=== PATIENT | male | born 1985 | race Caucasian/White ===

== ENCOUNTER 2020-06-18 18:13 | Inpatient (IN) | payer BC, SELFPAY ==
[~2020-06-18] VITALS: Ht 175.3 cm; Wt 112.9 kg
[2020-06-18 18:55] VITALS: BP_SYST 157
[2020-06-18 21:20] LABS: BASOPHILS % (AUTO) 0.1 % (0.0-2.0); HEMATOCRIT 45.2 % (36-54); HEMOGLOBIN 15.8 g/dL (14.0-18.0); LYMPHOCYTES % (AUTO) 12.9 % (20.5-51.5); MEAN CORPUSCULAR HEMOGLOBIN 32 pg (27-31); MEAN CORPUSCULAR HGB CONC 35 % (32-36); MEAN CORPUSCULAR VOLUME 91 fL (79.0-98.0); MONOCYTES # (AUTO) 0.8 K/uL (0.0-1.0); MONOCYTES % (AUTO) 9.3 % (1.7-9.3); NEUTROPHILS # (AUTO) 6.3 K/uL (1.8-7.7); NEUTROPHILS % (AUTO) 77.7 % (40.0-70.0); PLATELET COUNT (AUTO) 318 K/uL (130-430); RED BLOOD CELL COUNT(AUTO) 4.98 MIL/uL (4.2-6.2); WHITE BLOOD COUNT (AUTO) 8.1 K/uL (4.8-10.8)
[2020-06-18 21:22] LABS: CALCIUM 9.1 mg/dL (8.4-11.0); CREATININE 0.96 mg/dL (0.55-1.30); POTASSIUM 3.6 mmol/L (3.5-5.1)
[2020-06-18 21:28] LABS: ALBUMIN 3.5 g/dL (3.4-4.8); TOTAL BILIRUBIN 0.7 mg/dL (0.0-1.0)
[2020-06-18] MEDS ORDERED: cefTRIAXone 1 GM VIAL IM ONE (23:15)
[2020-06-18] MEDS ORDERED: DEXAMETHASONE SOD PHOSPHATE 4 MG/ML VIAL IM ONE (23:15)
[2020-06-18] MEDS ORDERED: AZITHROMYCIN 250 MG TABLET PO ONE (23:15)
[2020-06-19] MEDS ORDERED: NS 500 ML IV ONE (00:15)
[2020-06-19] MEDS ORDERED: DECADRON 4 MG TABLET PO SCH (10:00)
[2020-06-19 10:06] LABS: FIBRINOGEN 695 mg/dL (200-400)
[2020-06-19 11:08] LABS: C-REACTIVE PROTEIN QUANT 10.7 mg/dL (0-0.5)
[2020-06-19] MEDS: AZITHROMYCIN 250 MG TABLET PO SCH (11:13)
[2020-06-19] MEDS ORDERED: LORazepam 2 MG/ML VIAL IVP PRN (15:15)
[2020-06-19] MEDS ORDERED: ACETAMINOPHEN 325 MG TABLET PO PRN (15:15)
[2020-06-19] MEDS ORDERED: NALOXONE HCL 0.4 MG/ML AMP (NARCAN) IVP PRN ×2 (15:15)
[2020-06-19] MEDS ORDERED: ONDANSETRON HCL 4 MG/2 ML VIAL IVP PRN (15:15)
[2020-06-19] MEDS ORDERED: HYDROcodone/ACETAMIN 5-325 MG TAB (NORCO/ VICODIN) PO PRN (15:15)
[2020-06-19 16:02] VITALS: BP_SYST 142
[2020-06-19] MEDS: IPRATROPIUM BROM 0.5 MG/2.5 ML VIAL.NEB (ATROVENT) INH SCH (20:10)
[2020-06-19] MEDS: cefTRIAXone 1 GM IVPB PREMIX 50 ML IV SCH (21:45)
[2020-06-19] MEDS: NORMAL SALINE 5 ML DISP.SYRIN IVF SCH (21:46)
[2020-06-19] MEDS ORDERED: NORMAL SALINE 5 ML DISP.SYRIN IVF SCH (22:00)
[2020-06-19] MEDS: AZITHROMYCIN 500 MG in NS 250 ML IV SCH (22:44)
[2020-06-20] MEDS: IPRATROPIUM BROM 0.5 MG/2.5 ML VIAL.NEB (ATROVENT) INH SCH ×6 (00:16→23:00)
[2020-06-20] MEDS: NORMAL SALINE 5 ML DISP.SYRIN IVF SCH ×3 (05:52→21:37)
[2020-06-20 07:54] LABS: BASOPHILS % (AUTO) 0.1 % (0.0-2.0); HEMATOCRIT 43.1 % (36-54); HEMOGLOBIN 14.8 g/dL (14.0-18.0); LYMPHOCYTES # (AUTO) 2.4 K/uL (1.0-5.5); LYMPHOCYTES % (AUTO) 28.8 % (20.5-51.5); MEAN CORPUSCULAR HEMOGLOBIN 31 pg (27-31); MEAN CORPUSCULAR HGB CONC 34 % (32-36); MEAN CORPUSCULAR VOLUME 91 fL (79.0-98.0); MONOCYTES # (AUTO) 0.9 K/uL (0.0-1.0); NEUTROPHILS # (AUTO) 5.1 K/uL (1.8-7.7); NEUTROPHILS % (AUTO) 60.1 % (40.0-70.0); PLATELET COUNT (AUTO) 396 K/uL (130-430); RED BLOOD CELL COUNT(AUTO) 4.71 MIL/uL (4.2-6.2); RED CELL DISTRIBUTION WIDTH 12.7 % (9.0-15.0); WHITE BLOOD COUNT (AUTO) 8.4 K/uL (4.8-10.8)
[2020-06-20 08:28] LABS: ALBUMIN 2.9 g/dL (3.4-4.8); CALCIUM 8.7 mg/dL (8.4-11.0); CREATININE 0.76 mg/dL (0.55-1.30); POTASSIUM 3.5 mmol/L (3.5-5.1); TOTAL BILIRUBIN 0.5 mg/dL (0.0-1.0)
[2020-06-20] MEDS: DEXAMETHASONE SOD PHOSPHATE 10 MG/ML VIAL IVP SCH (08:45)
[2020-06-20] MEDS: ALBUTEROL SULFATE 0.083% 2.5 MG/3 ML VIAL.NEB INH PRN ×3 (10:26→15:35)
[2020-06-20] MEDS: AZITHROMYCIN 250 MG TABLET PO SCH (11:29)
[2020-06-20 12:25] LABS: C-REACTIVE PROTEIN QUANT 5.6 mg/dL (0-0.5)
[2020-06-20] MEDS ORDERED: LEVO500T89 PO (16:28)
[2020-06-20] MEDS ORDERED: DEC4 PO (16:28)
[2020-06-20] MEDS ORDERED: ALBMDI INH (16:29)
[2020-06-20] MEDS ORDERED: cefTRIAXone 1 GM IVPB PREMIX 50 ML IV ONE (21:07)
[2020-06-20] MEDS ORDERED: AZITHROMYCIN 500 MG/VIAL (ZITHROMAX) IV ONE (21:08)
[2020-06-20] MEDS: AZITHROMYCIN 500 MG in NS 250 ML IV SCH (21:24)
[2020-06-20] MEDS: cefTRIAXone 1 GM IVPB PREMIX 50 ML IV SCH (21:28)
[2020-06-21 00:06] LABS: ERYTHROCYTE SEDIMENTATION RATE 75 MM/HR (0-15)
[2020-06-21] MEDS ORDERED: HYDROcodone/ACETAMIN 10-325 MG TAB ONE (01:18)
[2020-06-21] MEDS: HYDROcodone/ACETAMIN 10-325 MG TAB PO PRN ×2 (01:20→09:40)
[2020-06-21] MEDS ORDERED: LORazepam 2 MG/ML VIAL ONE (04:30)
[2020-06-21] MEDS: NORMAL SALINE 5 ML DISP.SYRIN IVF SCH ×3 (06:38→22:00)
[2020-06-21] MEDS: IPRATROPIUM BROM 0.5 MG/2.5 ML VIAL.NEB (ATROVENT) INH SCH ×3 (07:00→15:00)
[2020-06-21 08:24] LABS: BASOPHILS % (AUTO) 0.4 % (0.0-2.0); CALCIUM 8.7 mg/dL (8.4-11.0); CREATININE 0.78 mg/dL (0.55-1.30); EOSINOPHILS % (AUTO) 0.2 % (0.0-4.0); LYMPHOCYTES # (AUTO) 2.4 K/uL (1.0-5.5); LYMPHOCYTES % (AUTO) 28.9 % (20.5-51.5); MEAN CORPUSCULAR HEMOGLOBIN 31 pg (27-31); MEAN CORPUSCULAR HGB CONC 34 % (32-36); MEAN CORPUSCULAR VOLUME 91 fL (79.0-98.0); MONOCYTES % (AUTO) 11.8 % (1.7-9.3); NEUTROPHILS % (AUTO) 58.7 % (40.0-70.0); PLATELET COUNT (AUTO) 460 K/uL (130-430); POTASSIUM 3.6 mmol/L (3.5-5.1); RED BLOOD CELL COUNT(AUTO) 4.49 MIL/uL (4.2-6.2); RED CELL DISTRIBUTION WIDTH 12.9 % (9.0-15.0); WHITE BLOOD COUNT (AUTO) 8.5 K/uL (4.8-10.8)
[2020-06-21] MEDS: DEXAMETHASONE SOD PHOSPHATE 10 MG/ML VIAL IVP SCH (09:00)
[2020-06-21] MEDS ORDERED: guaiFENesin/DEXTROMETHORPHAN 10 ML UDC PO PRN ×2 (09:30→13:45)
[2020-06-21 10:52] LABS: C-REACTIVE PROTEIN QUANT 2.8 mg/dL (0-0.5)
[2020-06-21 12:20] VITALS: BP_SYST 131
[2020-06-21 14:05] LABS: ERYTHROCYTE SEDIMENTATION RATE 71 MM/HR (0-15)
[2020-06-21 16:15] VITALS: BP_SYST 129
[2020-06-21] MEDS ORDERED: LEVO500T89 PO (18:24)
[2020-06-21] MEDS ORDERED: DEC4 PO (18:24)
[2020-06-21] MEDS ORDERED: ALBMDI INH (18:24)
[2020-06-21 18:46] VITALS: BP_SYST 131
[2020-06-21 20:00] VITALS: BP_SYST 156
[2020-06-21] MEDS: cefTRIAXone 1 GM IVPB PREMIX 50 ML IV SCH (22:00)
[2020-06-21] MEDS: AZITHROMYCIN 500 MG in NS 250 ML IV SCH (22:30)
[2020-06-22] VITALS: BP_SYST 145
[2020-06-22] MEDS: HYDROcodone/ACETAMIN 10-325 MG TAB PO PRN (01:46)
[2020-06-22] MEDS: NORMAL SALINE 5 ML DISP.SYRIN IVF SCH (06:00)
[2020-06-22 08:00] VITALS: BP_SYST 144
[2020-06-22 08:45] VITALS: BP_SYST 144
[2020-06-22] MEDS: DEXAMETHASONE SOD PHOSPHATE 10 MG/ML VIAL IVP SCH (09:00)
[2020-06-22 10:44] VITALS: BP_SYST 145
== END 2020-06-22 09:20 | disposition home or self-care (01) | DRG 177 ==
LOC: SED 18:13 → STU 06-19 02:24
PROVIDERS: ADMIT Preventive Medicine Preventive Medicine/Occupational Environmental Medicine; ATTEND Preventive Medicine Preventive Medicine/Occupational Environmental Medicine
DX: U07.1 COVID-19 (principal); J12.89 Other viral pneumonia; J96.01 Acute respiratory failure with hypoxia; E87.1 Hypo-osmolality and hyponatremia; E66.9 Obesity, unspecified; Z20.828 Contact with and (suspected) exposure to other viral communicable diseases; R74.01 Elevation of levels of liver transaminase levels; E78.5 Hyperlipidemia, unspecified; K76.0 Fatty (change of) liver, not elsewhere classified; R73.9 Hyperglycemia, unspecified; R16.2 Hepatomegaly with splenomegaly, not elsewhere classified; Z68.36 Body mass index [BMI] 36.0-36.9, adult
CPT/HCPCS: 36415; 36600; 71045; 76700-TC; 80048; 80053; 82728; 82803-TC; 83605; 83615-TC; 84484; 85025; 85379; 85384-TC; 85651-TC; 86140; 87040-TC; 93005; 94640; 96360; 96372; 99285; G0378; J0456; J0696; J1100; J2060; J7040; J7050; J7613; Q0144; U0003

== ENCOUNTER 2020-07-11 14:42 | Emergency (ER) | payer BC, SELFPAY ==
[~2020-07-11] VITALS: Ht 175.3 cm; Wt 111.1 kg
[~2020-07-11 14:42] MED LIST: ALBMDI INH; DEC4 PO; LEVO500T89 PO
[2020-07-11 14:47] VITALS: BP_SYST 172
[2020-07-11] MEDS ORDERED: LISINOPRIL 10 MG TABLET (PRINIVIL) PO ONE (15:30)
[2020-07-11 15:50] VITALS: BP_SYST 152
== END 2020-07-11 15:50 ==
LOC: SED 14:42
DX: U07.1 COVID-19 (principal); J18.9 Pneumonia, unspecified organism; I10 Essential (primary) hypertension; F12.90 Cannabis use, unspecified, uncomplicated
CPT/HCPCS: 99283

== ENCOUNTER 2023-12-24 10:03 | Emergency (ER) | payer SELFPAY ==
[~2023-12-24] VITALS: Ht 175.3 cm; Wt 113.4 kg
[~2023-12-24 10:03] MED LIST changes: +LEVO-62 PO; -LEVO500T89 PO
[2023-12-24 10:13] VITALS: BP_SYST 175; PULSE 81; RESP 18; TEMP 98.3; O2SAT 98
[2023-12-24 10:45] VITALS: TEMP 98.1
[2023-12-24 10:47] LABS: BASOPHILS % (AUTO) 0.2 % (0.0-2.0); EOSINOPHILS % (AUTO) 0.5 % (0.0-4.0); HEMATOCRIT 48.5 % (36-54); HEMOGLOBIN 16.6 g/dL (14.0-18.0); LYMPHOCYTES # (AUTO) 2.3 K/uL (1.0-5.5); LYMPHOCYTES % (AUTO) 30.8 % (20.5-51.5); MEAN CORPUSCULAR HEMOGLOBIN 33 pg (27-31); MEAN CORPUSCULAR HGB CONC 34 % (32-36); MEAN CORPUSCULAR VOLUME 96 fL (79.0-98.0); MONOCYTES # (AUTO) 0.5 K/uL (0.0-1.0); MONOCYTES % (AUTO) 6.7 % (1.7-9.3); NEUTROPHILS # (AUTO) 4.7 K/uL (1.8-7.7); NEUTROPHILS % (AUTO) 61.8 % (40.0-70.0); PLATELET COUNT (AUTO) 236 K/uL (130-430); RED BLOOD CELL COUNT(AUTO) 5.08 MIL/uL (4.2-6.2); RED CELL DISTRIBUTION WIDTH 12.6 % (9.0-15.0); WHITE BLOOD COUNT (AUTO) 7.6 K/uL (4.8-10.8)
[2023-12-24] MEDS: cloNIDine HCL 0.1 MG TABLET PO ONE (10:59)
[2023-12-24 11:12] LABS: ANION GAP 13 (5-15); CALCIUM 8.9 mg/dL (8.4-11.0); CARBON DIOXIDE 23 mmol/L (23-29); CHLORIDE 100 mmol/L (98-107); CREATININE 0.79 mg/dL (0.55-1.30); GFR AFRICAN AMERICAN 141 mL/min (>90); GFR NON AFRICAN-AMERICAN 117 mL/min (>90); GLUCOSE 172 mg/dL (74-106); POTASSIUM 3.4 mmol/L (3.5-5.1); SODIUM SERUM 136 mmol/L (136-145); UREA NITROGEN, BLOOD 6 mg/dL (8-21)
[2023-12-24] MEDS ORDERED: HYDR25TA4 PO (11:26)
[2023-12-24 11:56] VITALS: BP_SYST 145; PULSE 87; RESP 24; O2SAT 98
== END 2023-12-24 11:55 | disposition home or self-care (01) ==
LOC: SED 10:03
DX: I16.0 Hypertensive urgency (principal); R04.0 Epistaxis; R55 Syncope and collapse; R11.0 Nausea; Z79.899 Other long term (current) drug therapy; Z79.2 Long term (current) use of antibiotics
CPT/HCPCS: 36415; 71045; 80048; 83880; 84484; 85025; 93005; 99285